=== PATIENT | male | born 1990 | race Caucasian/White ===

== ENCOUNTER 2022-09-03 08:10 | Emergency (ER) | payer BC ==
[~2022-09-03] VITALS: Ht 177.8 cm; Wt 86.2 kg
[~2022-09-03 08:10] MED LIST: CLINDAMYCIN150 MG PO; MEDROL DOSEPAK4 MG PO; NKHM; NORCO 325 MG-51 TAB PO; VICODIN 5/500 505 MG PO
[2022-09-03 09:50] LABS: HEMATOCRIT 43.9 % (42.0-52.0); MEAN CELL VOLUME 88.7 fl (80.0-94.0); MEAN CORPUSCULAR HGB 29.9 pg (27.0-31.0); MEAN CORPUSCULAR HGB CONC 33.7 g/dl (33.0-37.0); MEAN PLATELET VOLUME 10.2 fl (9.6-12.3); PLATELET COUNT AUTOMATED 358 10*3/uL (130-400); RED BLOOD COUNT 4.95 10*6/uL (4.50-5.90); RED CELL DISTRI WIDTH 12.4 % (0-14.5); WHITE BLOOD COUNT 4.2 10*3/uL (4.8-10.8)
[2022-09-03 09:52] LABS: MANUAL DIFF REFLEX YES
[2022-09-03 10:05] LABS: ALKALINE PHOSPHATASE 66 U/L (46-116); BUN 7 mg/dl (9-23); CHLORIDE 106 mmol/L (98-107); CREATININE 0.91 mg/dL (0.70-1.30); LIPASE 33 U/L (12-53); POTASSIUM 4.2 mmol/L (3.4-5.1); SGPT/ALT 22 U/L (10-49); SODIUM 139 mmol/L (136-145)
[2022-09-03 10:09] LABS: ATYPICAL LYMPHS 1 % (0-0); BURR CELLS FEW; PLATELET SUFFICIENCY NORMAL (NORMAL); POLYCHROMASIA SLIGHT; TOTAL CELLS COUNTED 100 #CELLS
[2022-09-03 10:34] LABS: BILIRUBIN Negative (Negative); BLOOD Negative (Negative); CLARITY Turbid (Clear); COLOR Yellow (Yellow); GLUCOSE Negative (Negative); KETONE Negative (Negative); UROBILINOGEN 0.2 E.U./dl (0.0-1.0)
[2022-09-03 10:35] LABS: BACTERIA 1+; EPITHELIAL CELLS 0-2; LEUKO ESTERASE Negative (Negative); MUCOUS TRACE; NITRITE Negative (Negative); YEAST TRACE
== END 2022-09-03 10:56 | disposition home or self-care (01) ==
LOC: ED 08:10
PROVIDERS: Emergency Medicine
DX: R10.30 Lower abdominal pain, unspecified (principal)